=== PATIENT | female | born 1935 | race Caucasian/White ===

== ENCOUNTER 2018-11-12 21:09 | Emergency (ER) | payer OTHER, MEDICAID ==
[~2018-11-12] VITALS: Ht 157.5 cm; Wt 69.9 kg
[2018-11-12 21:18] VITALS: Ht 157.5 cm; Wt 69.9 kg
[2018-11-13 00:30] VITALS: BP 101/58
== END 2018-11-13 00:32 | disposition home or self-care (01) ==
LOC: ED 21:09
DX: I16.0 Hypertensive urgency (principal); R31.9 Hematuria, unspecified; F41.9 Anxiety disorder, unspecified; Z88.2 Allergy status to sulfonamides; Z88.1 Allergy status to other antibiotic agents; Z88.8 Allergy status to other drugs, medicaments and biological substances; Z88.6 Allergy status to analgesic agent
CPT/HCPCS: J1885

== ENCOUNTER 2019-01-20 21:21 | Emergency (ER) | payer OTHER, MEDICAID ==
[~2019-01-20] VITALS: Ht 162.6 cm; Wt 73.5 kg
[2019-01-20 21:36] VITALS: Ht 162.6 cm; Wt 73.5 kg
[2019-01-20 23:00] VITALS: BP 138/86
== END 2019-01-20 23:00 | disposition home or self-care (01) ==
LOC: ED 21:21
DX: I10 Essential (primary) hypertension (principal); K59.00 Constipation, unspecified; F41.9 Anxiety disorder, unspecified; Z88.1 Allergy status to other antibiotic agents; Z88.6 Allergy status to analgesic agent; Z88.2 Allergy status to sulfonamides; Z88.8 Allergy status to other drugs, medicaments and biological substances; Z88.5 Allergy status to narcotic agent

== ENCOUNTER 2019-06-27 19:07 | Emergency (ER) | payer OTHER, MEDICAID ==
[~2019-06-27] VITALS: Ht 170.2 cm; Wt 66.7 kg
[2019-06-27 19:29] VITALS: Ht 170.2 cm; Wt 66.7 kg
[2019-06-27 21:47] LABS: BASOPHIL % 0.6 % (0-2); PLATELET COUNT 238 x10^3mcL (130-400); RED CELL DISTRIBUTION WIDTH 13.5 % (11.5-14.5)
[2019-06-27 21:52] LABS: CALCIUM 8.8 mg/dL (8.5-10.1); CARBON DIOXIDE 25.9 mmol/L (21-32); CHLORIDE SERUM 100 mmol/L (98-107); CREATININE SERUM 0.6 mg/dL (0.6-1.0); GLUCOSE SERUM 92 mg/dL (74-106); SODIUM SERUM 135 mmol/L (136-145)
[2019-06-27 21:57] LABS: ALBUMIN 3.4 g/dL (3.4-5.0); ALKALINE PHOSPHATASE 60 U/L (46-116); ALT/SGPT 16 U/L (14-59); AST/SGOT 16 U/L (15-37); BILIRUBIN TOTAL 0.4 mg/dL (0.20-1.00); TOTAL PROTEIN, SERUM 6.5 g/dL (6.4-8.2)
[2019-06-28 01:35] VITALS: BP 139/79
== END 2019-06-28 01:35 | disposition home or self-care (01) ==
LOC: ED 19:07
PROVIDERS: Emergency Medicine
DX: K21.9 Gastro-esophageal reflux disease without esophagitis (principal); I10 Essential (primary) hypertension; F41.9 Anxiety disorder, unspecified; Z88.1 Allergy status to other antibiotic agents; Z88.2 Allergy status to sulfonamides; Z88.0 Allergy status to penicillin; Z88.6 Allergy status to analgesic agent
CPT/HCPCS: J7030

== ENCOUNTER 2019-11-05 14:42 | Emergency (ER) | payer OTHER, MEDICAID ==
[~2019-11-05] VITALS: Ht 157.5 cm; Wt 65.8 kg
[2019-11-05 17:09] LABS: BASOPHIL % 0.4 % (0-2); PLATELET COUNT 260 x10^3mcL (130-400); RED CELL DISTRIBUTION WIDTH 13.7 % (11.5-14.5)
[2019-11-05 17:29] LABS: CALCIUM 9.3 mg/dL (8.5-10.1); CARBON DIOXIDE 30.5 mmol/L (21-32); CHLORIDE SERUM 99 mmol/L (98-107); CREATININE SERUM 0.7 mg/dL (0.6-1.0); GLUCOSE SERUM 87 mg/dL (74-106); POTASSIUM SERUM 3.9 mmol/L (3.5-5.1); SODIUM SERUM 132 mmol/L (136-145)
[2019-11-05 17:33] LABS: ALBUMIN 3.6 g/dL (3.4-5.0); ALKALINE PHOSPHATASE 68 U/L (46-116); ALT/SGPT 23 U/L (14-59); AST/SGOT 20 U/L (15-37); BILIRUBIN TOTAL 0.3 mg/dL (0.20-1.00)
[2019-11-05 18:21] LABS: CALCIUM 9.2 mg/dL (8.5-10.1); MAGNESIUM 1.9 mg/dL (1.8-2.4); T4(THYROXINE) 8.2 ug/dL (4.7-13.3)
[2019-11-05 18:30] LABS: microscopic required? NO; urine erythrocyte NEGATIVE (NEGATIVE)
[2019-11-05 18:42] LABS: AMPHETAMINE QUAL UR NONE DETECTED (See below)
[2019-11-05 20:58] VITALS: BP 116/54
== END 2019-11-05 20:58 | disposition home or self-care (01) ==
LOC: ED 14:42
PROVIDERS: Emergency Medicine
DX: F41.9 Anxiety disorder, unspecified (principal); I10 Essential (primary) hypertension; E78.00 Pure hypercholesterolemia, unspecified; Z90.710 Acquired absence of both cervix and uterus; Z90.89 Acquired absence of other organs; Z88.1 Allergy status to other antibiotic agents; Z88.2 Allergy status to sulfonamides; Z88.6 Allergy status to analgesic agent; Z88.8 Allergy status to other drugs, medicaments and biological substances
CPT/HCPCS: 36415; 82962

== ENCOUNTER 2020-01-11 08:42 | Inpatient (IN) | payer OTHER, MEDICAID ==
[~2020-01-11] VITALS: Ht 167.6 cm; Wt 61.2 kg
[2020-01-11 09:12] VITALS: Ht 167.6 cm; Wt 61.2 kg
[2020-01-11 10:30] LABS: CALCIUM 8.7 mg/dL (8.5-10.1); CARBON DIOXIDE 25.8 mmol/L (21-32); CHLORIDE SERUM 99 mmol/L (98-107); CREATININE SERUM 0.7 mg/dL (0.6-1.0); GLUCOSE SERUM 110 mg/dL (74-106); SODIUM SERUM 134 mmol/L (136-145)
[2020-01-11 10:46] LABS: ALBUMIN 3.3 g/dL (3.4-5.0); TOTAL PROTEIN, SERUM 6.5 g/dL (6.4-8.2)
[2020-01-11 11:00] LABS: AST/SGOT 17 U/L (15-37); BILIRUBIN TOTAL 0.4 mg/dL (0.20-1.00)
[2020-01-11 11:01] LABS: ALKALINE PHOSPHATASE 63 U/L (46-116); ALT/SGPT 20 U/L (14-59)
[2020-01-11 11:02] LABS: BASOPHIL % 0.5 % (0-2); PLATELET COUNT 207 x10^3mcL (130-400); RED CELL DISTRIBUTION WIDTH 13.8 % (11.5-14.5)
[2020-01-11] MEDS ORDERED: VYTORIN1 TAB PO (12:00)
[2020-01-11] MEDS ORDERED: ALPRAZOLAM XR0.5 M2 PO (12:01)
[2020-01-11] MEDS ORDERED: LOSARTAN POTAS100 M1 PO (12:01)
[2020-01-11] MEDS ORDERED: NEXIUM40 MG PO (12:01)
[2020-01-11] MEDS ORDERED: IBU800 M2 PO (12:02)
[2020-01-11] MEDS ORDERED: VIVELLE-DO0.025 MG/2 (12:02)
[2020-01-11] MEDS ORDERED: CALCIUM 500-VI1 EACH PO (12:03)
[2020-01-11] MEDS ORDERED: RANITIDINE HYD150 M2 PO (12:04)
[2020-01-11] MEDS ORDERED: CLONIDINE HCL0.1 M1 PO (12:04)
[2020-01-11] MEDS ORDERED: MICROZIDE12.5 MG PO (12:05)
[2020-01-11] MEDS ORDERED: ASPIRIN CHILDRE81 MG PO (12:06)
[2020-01-11] MEDS ORDERED: LIO10 PO (12:06)
[2020-01-11 12:41] LABS: CHOLESTEROL/HDL RATIO 2.1
[2020-01-11 13:36] LABS: microscopic required? NO
[2020-01-11 14:20] VITALS: BP 158/76
[2020-01-11 14:20] LABS: urine erythrocyte NEGATIVE (NEGATIVE)
[2020-01-11 18:09] VITALS: BP 127/73
[2020-01-11 19:06] LABS: AMPHETAMINE QUAL UR NONE DETECTED (See below)
[2020-01-11 20:57] VITALS: BP 130/63
[2020-01-12 05:42] VITALS: BP 105/47
[2020-01-12 07:15] LABS: BASOPHIL % 0.2 % (0-2); PLATELET COUNT 203 x10^3mcL (130-400); RED CELL DISTRIBUTION WIDTH 13.5 % (11.5-14.5)
[2020-01-12 07:22] LABS: CARBON DIOXIDE 25.8 mmol/L (21-32); CHLORIDE SERUM 98 mmol/L (98-107); CREATININE SERUM 0.6 mg/dL (0.6-1.0); GLUCOSE SERUM 95 mg/dL (74-106); MAGNESIUM 1.8 mg/dL (1.8-2.4); PHOSPHOROUS 2.7 mg/dL (2.5-4.9); POTASSIUM SERUM 3.8 mmol/L (3.5-5.1); SODIUM SERUM 132 mmol/L (136-145)
[2020-01-12 08:22] VITALS: BP 124/59
[2020-01-12 13:01] VITALS: BP 144/66
[2020-01-12 17:34] VITALS: BP 140/63
[2020-01-12 17:35] VITALS: BP 144/66
== END 2020-01-12 18:40 | disposition home or self-care (01) | DRG 206 ==
LOC: ED 08:42 → DU 11:46 → MU 01-12 17:02
PROVIDERS: Emergency Medicine; ADMIT Family Medicine
DX: M94.0 Chondrocostal junction syndrome [Tietze] (principal); E87.1 Hypo-osmolality and hyponatremia; E44.1 Mild protein-calorie malnutrition; I10 Essential (primary) hypertension; F41.9 Anxiety disorder, unspecified; E78.00 Pure hypercholesterolemia, unspecified; K21.9 Gastro-esophageal reflux disease without esophagitis; J45.909 Unspecified asthma, uncomplicated; M19.90 Unspecified osteoarthritis, unspecified site; Z88.1 Allergy status to other antibiotic agents; Z88.2 Allergy status to sulfonamides; Z88.8 Allergy status to other drugs, medicaments and biological substances; Z90.49 Acquired absence of other specified parts of digestive tract; Z90.710 Acquired absence of both cervix and uterus; Z90.722 Acquired absence of ovaries, bilateral; Z79.82 Long term (current) use of aspirin; Z79.899 Other long term (current) drug therapy; Z68.21 Body mass index [BMI] 21.0-21.9, adult; Z88.7 Allergy status to serum and vaccine
CPT/HCPCS: 80201; 83880; 97116-GP; G0378